=== PATIENT | male | born 1990 | race Caucasian/White ===

== ENCOUNTER 2020-11-10 11:02 | Emergency (ER) | payer OTHER, SELFPAY ==
--- NOTE | 2020-11-10 11:13 | HMH.EDUTC ---
[facility] [place] Clinical Impression: Raynauds phenomenon Qualifiers: Raynaud?s-associated gangrene presence: without gangrene Qualified Code(s): I73.00 - Raynaud's syndrome without gangrene Disposition: Home, Self-Care Condition on Discharge: Good Instructions: Raynaud Disease and Phenomenon Additional Instructions: You need to stop smoking. Avoid letting your hands and feet get too cold. Follow up with a primary care physician. We gave you a list of doctors that are taking new patients. GO TO THE ER FOR WORSENING SYMPTOMS OR CONCERNS Referrals: PCP,No [Primary Care Provider] - Forms: Work/School Release Time of Disposition: 11:37 Medical Decision Making - Medical Records Medical records reviewed: No: I reviewed the patient's medical records. - Fabio Inquiry Pt receiving controlled substance: No Vital Signs: 11/10/20 11:14 11/10/20 11:37 Temperature 98.3 F 98.2 F Temperature Source Oral Oral Pulse Rate 72 Pulse Rate [Left] 70 Respiratory Rate 16 16 Blood Pressure 0/0 L Blood Pressure Source Automatic Cuff Blood Pressure Position Sitting 02 Sat by Pulse Oximetry 98 Oxygen Delivery Method Room Air Room Air [facility] [place] - General Stated complaint: hands swollen/red Time Seen by Provider: 11/10/20 11:13 - History of Present Illness Provider Complaint: He states that, over the past several months, he has had redness of the skin on is hands and feet. He denies any pain or discomfort. He denies any injury. [facility] History - Hepatitis A Screen Attestation statement:: This patient has been screened for Hepatitis A risk factors. I have reviewed the patient's past medical history: Yes ROS Obtained: Yes All systems reviewed & no additional complaints - Constitutional Constitutional: Denies body ache, Denies chills, Denies fatigue, Denies fever(s), Denies poor appetite, Denies lethargy, Denies malaise - Eyes Eyes: Denies eye discharge - ENT Ears, Nose, Mouth, and Throat: Denies dizziness, Denies otalgia, Denies sore throat - Cardiovascular Cardiovascular: Denies chest pain - Respiratory Respiratory: Denies chest congestion, Denies cough, Denies dyspnea, Denies stridor, Denies wheezing - Gastrointestinal Gastrointestingal: Denies: abdominal pain, diarrhea, nausea, vomiting Physical Exam - General General appearance: alert, in no apparent distress - Head Head exam: atraumatic, normocephalic, normal inspection - Eye Eye exam: Present: normal appearance, PERRL, EOMI - ENT ENT exam: Present: normal exam, normal oropharynx, mucous membranes moist, TM's normal bilaterally, normal external ear exam - Neck Neck exam: Present: normal inspection, full ROM, trachea midline. Absent: meningismus, lymphadenopathy - Chest Chest inspection: Present: normal inspection, symmetric chest wall rise. Absent: tenderness - Respiratory Respiratory exam: Present: normal lung sounds bilaterally. Absent: respiratory distress - Cardiovascular Cardiovascular exam: Present: regular rate, normal rhythm. Absent: JVD - Abdominal Exam Abdominal exam: Present: soft, normal bowel sounds. Absent: distention, tenderness, guarding - Extremities Exam Extremities exam: Present: normal inspection, full ROM, normal capillary refill. Absent: calf tenderness - Back Exam Back exam: Present: normal inspection. Absent: tenderness - Neurological Exam Neurological exam: Present: alert, oriented X3 - Psychiatric Psychiatric exam: Present: normal affect, normal mood - Skin Skin exam: Present: warm, dry, intact, normal color - Lymphatic Lymphatic Findings: no adenopathy
[2020-11-10 11:14] VITALS: PULSE 70; RESP 16; TEMP 36.8; O2SAT 98; BMI 24.4
[2020-11-10 11:37] VITALS: BP 0/0; PULSE 72; RESP 16; TEMP 36.8; O2SAT 98
== END 2020-11-10 11:41 | disposition home or self-care (01) ==
PROVIDERS: Emergency Provider Nurse Practitioner Family
DX: I73.00 Raynaud's syndrome without gangrene (principal)
CPT/HCPCS: 99202; G0463

== ENCOUNTER 2022-04-13 22:53 | Emergency (ER) | payer OTHER, SELFPAY ==
[2022-04-13 22:55] VITALS: BP 135/98; PULSE 112; RESP 16; TEMP 36.9; O2SAT 97; BMI 26.9
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
[2022-04-13 23:30] VITALS: BP 138/89; PULSE 106; RESP 18; TEMP 36.9; O2SAT 97
== END 2022-04-13 23:29 | disposition home or self-care (01) ==
LOC: ER 22:58
PROVIDERS: Emergency Provider Emergency Medicine
DX: F10.129 Alcohol abuse with intoxication, unspecified (principal)
CPT/HCPCS: 99282

== ENCOUNTER 2023-10-15 19:48 | Emergency (ER) | payer OTHER, SELFPAY ==
[2023-10-15 19:49] VITALS: BP 155/87; PULSE 96; RESP 20; TEMP 36.4; O2SAT 98; BMI 23.1
--- NOTE | 2023-10-15 20:05 | XR_ITS ---
PROCEDURE INFORMATION: Exam: XR Left Forearm Exam date and time: 10/15/2023 8:08 PM Age: 33 years old Clinical indication: Pain; Lower or forearm; Left; Additional info: Dog bite L forearm, swelling/pain TECHNIQUE: Imaging protocol: Radiologic exam of the left forearm. Views: 2 views. COMPARISON: No relevant prior studies available. FINDINGS: Bones/joints: No evidence of acute osseous abnormality. Soft tissues: Soft tissue irregularities without radiopaque foreign bodies. IMPRESSION: 1. Soft tissue irregularities without radiopaque foreign bodies. 2. No evidence of acute osseous abnormality.
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
--- NOTE | 2023-10-15 20:33 | PC.NURSE ---
Pt refuses to take TDAP, refuses to take antibiotics. Wants to leave so he can go home and drink and smoke cigarettes.
--- NOTE | 2023-10-15 20:40 | PC.NURSE ---
Pt signed AMA, leaving with his mother at this time
[2023-10-15 20:43] VITALS: BP 155/97; PULSE 96; RESP 20; TEMP 36.4; O2SAT 98
== END 2023-10-15 20:43 | disposition left against medical advice (07) ==
PROVIDERS: Emergency Provider Emergency Medicine
DX: S51.852A Open bite of left forearm, initial encounter (principal); L08.9 Local infection of the skin and subcutaneous tissue, unspecified; Z53.29 Procedure and treatment not carried out because of patient's decision for other reasons; F17.210 Nicotine dependence, cigarettes, uncomplicated; W54.0XXA Bitten by dog, initial encounter
CPT/HCPCS: 73090; 99283

== ENCOUNTER 2024-03-10 10:56 | Outpatient (CLI) | payer OTHER, SELFPAY ==
[2024-03-10 11:52] LABS: Basophils # 0.1 K/mm3 (0-0.2); Basophils % 2.1 % (0.1-2.0); Eosinophils # 0.1 K/mm3 (0.0-0.4); Eosinophils % 2.3 % (0.1-12.0); Hematocrit 53.5 % (42.0-52.0); Hemoglobin 17.4 g/dL (14.1-18.0); Lymphocytes # 1.5 K/mm3 (0.7-4.5); Lymphocytes % 42.3 % (10-50); Mean Corpuscular HGB Conc 32.5 g/dL (31.8-35.4); Mean Corpuscular Hemoglobin 32.9 pg (27.0-31.2); Mean Corpuscular Volume 101.1 fl (80-94); Mean Platelet Volume 8.4 fl (7.4-10.4); Monocytes # 0.3 K/mm3 (0.1-1.0); Monocytes % 9.6 % (1.7-9.3); Neutrophils # 1.6 K/mm3 (1.8-7.8); Neutrophils % 43.8 % (37.0-80.0); Platelet Count 139 K/mm3 (142-424); Red Blood Count 5.29 M/mm3 (4.60-6.20); Red Cell Distribution Width 13.5 % (11.5-17.5); White Blood Count 3.6 K/mm3 (4.8-10.8)
[2024-03-10 12:29] LABS: Alanine Aminotransferase 232 U/L (12-78); Albumin/Globulin Ratio 1.4 (1.1-1.8); Alkaline Phosphatase 56 U/L (38-126); Anion Gap 15.1 mEq/L (5-15); Aspartate Amino Transferase 153 U/L (17-59); Bilirubin,Total 0.6 mg/dl (0.2-1.3); Blood Urea Nitrogen 7 mg/dl (9-20); Calcium 10.5 mg/dl (8.4-10.2); Carbon Dioxide 26 mmol/L (22.0-30.0); Chloride 106 mmol/L (98-107); Cholesterol 262 mg/dl (140-200); Estimated Glomerular Filt Rate 155 ml/min (>60); GFR (African American) 188 ML/MIN (>60); Globulin 3.6 g/dL (1.3-3.2); Glucose 95 mg/dl (74-100); Potassium 5.1 mmoL/L (3.5-5.1); Sodium 142 mmol/L (136-145); Total Protein,Serum 8.6 g/dl (6.3-8.2); Triglycerides 71 mg/dl (30-150); VLDL Cholesterol 14 mg/dL (0-40)
[2024-03-10 12:38] LABS: Chol/HDL Ratio 2.3 (1-3.5); HDL Cholesterol 116 mg/dl (40-60)
[2024-03-10 12:40] LABS: Direct LDL Cholesterol 122.07 mg/dL (100-129)
[2024-03-10 12:46] LABS: 25-OH Vitamin D, Total 69.1 ng/mL (30-100)
[2024-03-10 13:00] LABS: Thyroid Stimulating Hormone 2.67 uIU/mL (0.465-4.68)
[2024-03-11 14:15] LABS: Rapid Plasma Reagin Ab Titer Non Reactive titer (NonRea<1:1)
[2024-03-11 16:16] LABS: HIV (1&2) Antibody Rapid NONREACTIVE (NONREACTIVE)
[2024-03-24 12:15] LABS: Hep B Core Ab, Total Negative; Hepatitis B Surface Antigen Negative
[2024-03-24 12:16] LABS: Hep A Ab, Total Negative
[2024-03-24 12:17] LABS: Hepatitis C Antibody Non Reactive
== END 2024-03-10 23:59 | disposition home or self-care (01) ==
LOC: LAB 11:01
DX: F10.20 Alcohol dependence, uncomplicated (principal)
CPT/HCPCS: 86703; 36415; 80050; 80053; 80061; 82306; 84443; 85025; 86593; 86704; 86708; 87340; 87380

== ENCOUNTER 2024-04-09 09:27 | Outpatient (CLI) | payer OTHER, SELFPAY ==
--- NOTE | 2024-04-09 09:33 | US_ITS ---
FINAL REPORT CLINICAL HISTORY: ELEVATED LIVER ENZYMES COMPARISON: None FINDINGS: Sonographic images of the right upper quadrant were obtained. The pancreas is obscured. Liver demonstrates increased echogenicity. The gallbladder appears normal without evidence of gallstones. Mild amount of sludge is seen in the gallbladder. There is no evidence of biliary ductal dilatation.The common duct measures 3 mm. Limited images of the right kidney are unremarkable. IMPRESSION: Increased echogenicity of the liver. Gallbladder sludge. Reviewed, Interpreted and Dictated by Jag Cantu MD Transcribed by Irish Khanna Authenticated and [facility]
== END 2024-04-09 23:59 | disposition home or self-care (01) ==
PROVIDERS: PCP Registered Nurse; Visit Provider Registered Nurse
DX: R74.01 Elevation of levels of liver transaminase levels (principal)
CPT/HCPCS: 76705

== ENCOUNTER 2024-07-07 09:54 | Outpatient (CLI) | payer OTHER, SELFPAY ==
[2024-07-07 10:35] LABS: Basophils # 0.1 K/mm3 (0-0.2); Basophils % 1.1 % (0.1-2.0); Eosinophils # 0.1 K/mm3 (0.0-0.4); Eosinophils % 1.8 % (0.1-12.0); Hemoglobin 17.2 g/dL (14.1-18.0); Lymphocytes # 1.8 K/mm3 (0.7-4.5); Lymphocytes % 37.6 % (10-50); Mean Corpuscular HGB Conc 34.3 g/dL (31.8-35.4); Mean Corpuscular Hemoglobin 34.8 pg (27.0-31.2); Mean Corpuscular Volume 101.3 fl (80-94); Mean Platelet Volume 8.4 fl (7.4-10.4); Monocytes # 0.4 K/mm3 (0.1-1.0); Monocytes % 9.1 % (1.7-9.3); Neutrophils # 2.4 K/mm3 (1.8-7.8); Neutrophils % 50.4 % (37.0-80.0); Platelet Count 182 K/mm3 (142-424); Red Blood Count 4.94 M/mm3 (4.60-6.20); Red Cell Distribution Width 13.1 % (11.5-17.5); White Blood Count 4.7 K/mm3 (4.8-10.8)
[2024-07-07 11:19] LABS: Alanine Aminotransferase 241 U/L (12-78); Albumin Level 4.6 g/dl (3.5-5.0); Albumin/Globulin Ratio 1.6 (1.1-1.8); Alkaline Phosphatase 59 U/L (38-126); Anion Gap 14.7 mEq/L (5-15); Aspartate Amino Transferase 137 U/L (17-59); Bilirubin,Total 0.8 mg/dl (0.2-1.3); Blood Urea Nitrogen 11 mg/dl (9-20); Calcium 9.8 mg/dl (8.4-10.2); Carbon Dioxide 27 mmol/L (22.0-30.0); Chloride 104 mmol/L (98-107); Estimated Glomerular Filt Rate 129 ml/min (>60); GFR (African American) 156 ML/MIN (>60); Globulin 2.8 g/dL (1.3-3.2); Glucose 106 mg/dl (74-100); Potassium 4.7 mmoL/L (3.5-5.1); Sodium 141 mmol/L (136-145); Total Protein,Serum 7.4 g/dl (6.3-8.2)
[2024-07-07 12:24] LABS: Vitamin B12 881 pg/mL (239-931)
== END 2024-07-07 23:59 | disposition home or self-care (01) ==
LOC: LAB 09:56
PROVIDERS: PCP Registered Nurse; Visit Provider Registered Nurse
DX: F10.20 Alcohol dependence, uncomplicated (principal)
CPT/HCPCS: 36415; 80053; 82607; 82746; 85025

== ENCOUNTER 2024-09-17 09:34 | Outpatient (CLI) | payer OTHER, SELFPAY ==
[2024-09-17 09:54] LABS: Basophils # 0.1 K/mm3 (0-0.2); Basophils % 0.9 % (0.1-2.0); Eosinophils # 0.1 K/mm3 (0.0-0.4); Eosinophils % 0.9 % (0.1-12.0); Hematocrit 55.1 % (42.0-52.0); Lymphocytes # 2.1 K/mm3 (0.7-4.5); Lymphocytes % 35.8 % (10-50); Mean Corpuscular HGB Conc 34.3 g/dL (31.8-35.4); Mean Corpuscular Hemoglobin 33.2 pg (27.0-31.2); Mean Corpuscular Volume 96.7 fl (80-94); Mean Platelet Volume 10.2 fl (7.4-10.4); Monocytes # 0.5 K/mm3 (0.1-1.0); Monocytes % 7.9 % (1.7-9.3); Neutrophils # 3.2 K/mm3 (1.8-7.8); Neutrophils % 54.3 % (37.0-80.0); Platelet Count 171 K/mm3 (142-424); Red Cell Distribution Width 11.9 % (11.5-17.5); White Blood Count 5.8 K/mm3 (4.8-10.8)
[2024-09-17 10:14] LABS: Chloride 102 mmol/L (98-107)
[2024-09-17 10:15] LABS: Albumin Level 4.8 g/dl (3.5-5.0); Potassium 4.7 mmoL/L (3.5-5.1); Sodium 140 mmol/L (136-145)
[2024-09-17 10:17] LABS: Blood Urea Nitrogen 9 mg/dl (9-20); Estimated Glomerular Filt Rate 129 ml/min (>60); GFR (African American) 156 ML/MIN (>60)
[2024-09-17 10:18] LABS: Alanine Aminotransferase 120 U/L (12-78); Albumin/Globulin Ratio 1.7 (1.1-1.8); Alkaline Phosphatase 69 U/L (38-126); Anion Gap 12.7 mEq/L (5-15); Aspartate Amino Transferase 107 U/L (17-59); Bilirubin,Total 1.1 mg/dl (0.2-1.3); Calcium 9.8 mg/dl (8.4-10.2); Carbon Dioxide 30 mmol/L (22.0-30.0); Globulin 2.9 g/dL (1.3-3.2); Glucose 119 mg/dl (74-100); Total Protein,Serum 7.7 g/dl (6.3-8.2)
[2024-09-17 11:06] LABS: Hemoglobin 18.9 g/dL (14.1-18.0)
[2024-09-18 08:23] LABS: HBsAg Screen Negative (Negative); HCV Ab Non Reactive (Non Reactive); Hep A Ab, IGM Negative (Negative); Hep B Core Ab, IgM Negative (Negative)
[2024-09-22 05:07] LABS: ALT (SGPT) P5P 126 IU/L (0-55); AST (SGOT) P5P 99 IU/L (0-40); Alpha 2-Macroglobulins, Qn 230 mg/dL (110-276); Apolipoprotein A-1 210 mg/dL (101-178); Bilirubin, Total 0.8 mg/dL (0.0-1.2); Cholesterol, Total 223 mg/dL (100-199); Fibrosis Score 0.31 (0.00-0.21); Fibrosis Stage F1-F2 (.); GGT 367 IU/L (0-65); Glucose 114 mg/dL (70-99); Haptoglobin 144 mg/dL (17-317); NASH Score 0.84 (0.00-0.25); Steatosis Score 0.52 (0.00-0.40); Triglycerides 74 mg/dL (0-149)
== END 2024-09-17 23:59 | disposition home or self-care (01) ==
LOC: LAB 09:34
PROVIDERS: PCP Registered Nurse; Visit Provider Nurse Practitioner Family
DX: K70.9 Alcoholic liver disease, unspecified (principal)
CPT/HCPCS: 36415; 80053; 80074; 85025

== ENCOUNTER 2025-07-22 10:57 | Outpatient (CLI) | payer OTHER, SELFPAY ==
[2025-07-22 12:41] LABS: Chloride 101 mmol/L (98-107)
[2025-07-22 12:42] LABS: Albumin Level 5.5 g/dl (3.5-5.0); Potassium 4.6 mmoL/L (3.5-5.1); Sodium 142 mmol/L (136-145)
[2025-07-22 12:44] LABS: Alanine Aminotransferase 274 U/L (12-78); Alkaline Phosphatase 54 U/L (38-126); Anion Gap 20.6 mEq/L (5-15); Aspartate Amino Transferase 207 U/L (17-59); Bilirubin,Total 0.5 mg/dl (0.2-1.3); Blood Urea Nitrogen 6 mg/dl (9-20); Carbon Dioxide 25 mmol/L (22.0-30.0); Creatinine,Serum 0.60 mg/dl (0.66-1.25); Estimated Glomerular Filt Rate 153 ml/min (>60); GFR (African American) 186 ML/MIN (>60)
[2025-07-22 12:45] LABS: Albumin/Globulin Ratio 1.4 (1.1-1.8); Calcium 10.1 mg/dl (8.4-10.2); Globulin 3.9 g/dL (1.3-3.2); Glucose 105 mg/dl (74-100); Total Protein,Serum 9.4 g/dl (6.3-8.2)
== END 2025-07-22 23:59 | disposition home or self-care (01) ==
LOC: LAB 10:58
PROVIDERS: PCP Registered Nurse; Visit Provider Nurse Practitioner Family
DX: R79.89 Other specified abnormal findings of blood chemistry (principal)
CPT/HCPCS: 36415; 80053